=== PATIENT | female | born 1965 | race Caucasian/White ===

== ENCOUNTER 2018-05-20 05:56 | Day surgery (SDC) | payer BC ==
[2018-05-20] MEDS ORDERED: DIPRIVAN 200 MG/20 ML IV ONE (05:57)
[2018-05-20] MEDS ORDERED: Lactated Ringers 1,000 ML IV SCH (07:00)
[2018-05-20] MEDS ORDERED: Lactated Ringers 1,000 ML IV ONE (08:05)
[2018-05-20 09:08] VITALS: BP 143/73; PULSE 61; O2SAT 95
--- NOTE | 2018-05-20 10:54 | OP ---
SURGERY DATE: 05/20/18 SURGERY TIME: 727 PREOPERATIVE DIAGNOSIS: 1. SCREENING EXAM. POSTOPERATIVE DIAGNOSIS: 1. MULTIPLE POLYPS. PROCEDURE: 1. Colonoscopy with biopsy. SURGEON: Dr. Mario. ANESTHESIA: MAC. Medications given by the Anesthesia Department. BRIEF HISTORY: The patient is a 52 y/o WF presenting now for screening colonoscopy. The patient was appraised of the risks of the procedure including the risk of perforation, phlebitis, untoward reaction to medication, bleeding, and missed lesions. The patient verbalized her understanding and desired to have the procedure performed. DESCRIPTION OF PROCEDURE: The patient was given the medications by the Anesthesia Department. She had continuous pulse oximetry, ECG monitoring, intermittent BP monitoring, and end tidal CO2 monitoring during the examination. She was placed in the left lateral decubitus position. A digital rectal examination was performed and revealed normal anal sphincter tone and no masses. The flexible Olympus pediatric colonoscope was used to intubate the rectum. A view of the colon was developed sequentially to the cecum. Upon insertion and withdrawal, were noted polyps in several areas of the colon. There was a flat, sessile-appearing polyp in the ascending colon which was biopsied to rule out any adenomatous change. There was also a smaller one in the hepatic flexure. There was noted one in the descending colon also fairly flat and wide-based. This was biopsied also to rule out adenomatous change and polyps in the rectosigmoid area which were more heaped up and more characteristic for the possibility of adenomatous change. These were also biopsied with cold biopsy technique. The scope was removed from the patient who tolerated the procedure well and was sent back to OP recovery in good condition. The prep was noted to be fair to good.
== END 2018-05-20 09:00 | disposition home or self-care (01) ==
LOC: SDC 05:56
PROVIDERS: ATTEND Family Medicine
DX: K63.5 Polyp of colon (principal); K62.1 Rectal polyp
CPT/HCPCS: J2704

== ENCOUNTER 2022-05-06 10:26 | Emergency (ER) | payer OTHER ==
--- NOTE | 2022-05-06 11:04 | XRAY ---
Indication: Chest pain. Comparison: None Portable chest demonstrates normal heart and lungs. Bony thorax intact with mild degenerative changes.
[2022-05-06 11:08] LABS: Absolute Neutrophil Ct (ANC) 4.85 x10^3/uL (1.4-6.9); Basophil (Absolute #) 0.04 x10^3/uL (0-0.4); Eosinophil % 1.3 % (0.00-5.0); Hematocrit 42.2 % (35-47); Hemoglobin 13.4 g/dL (12.0-16.0); Lymphocyte (Absolute #) 2.37 x10^3/uL (1.0-4.6); Lymphocytes % 30.2 % (24.0-44.0); Mean Cell Volume 87.2 fL (78-100); Mean Corpuscular Hemoglobin 27.7 pg (26-32); Mean Corpuscular Hgb Concent. 31.8 g/dL (32-36); Mean Platelet Volume 10.9 fL (7.5-11.0); Monocyte (Absolute #) 0.48 x10^3/uL (0.0-1.3); Monocytes % 6.1 % (0.0-12.0); Neutrophil % 61.6 % (36.0-66.0); Platelet Count 249 x10^3/uL (150-450); Red Blood Count 4.84 x10^6/uL (4.1-5.4); Red Cell Distribution Width 15.9 % (11.5-14.0); White Blood Count 7.9 x10^3/uL (4.0-10.5)
[2022-05-06 11:26] LABS: D-DIMER QUANTITATIVE 0.25 mg/L (0.0-0.50); INR 0.93 (0.8-3.0); PROTIME 9.9 SECONDS (9.4-12.5); PTT 25.4 SECONDS (25.1-36.5)
[2022-05-06 11:34] LABS: ALBUMIN 4.4 g/dL (3.5-5.0); ALKALINE PHOSPHATASE 55 U/L (38-126); AMYLASE 78 U/L (30-110); BLOOD UREA NITROGEN 14 mg/dL (7-17); CHLORIDE 100 mmol/L (98-107); Calcium 8.9 mg/dL (8.4-10.2); Carbon Dioxide 31 mmol/L (22-30); Creatinine 1 0.66 mg/dL (0.52-1.04); EST GLOMERULAR FILTRATION RATE > 60.0 ML/MIN; Glucose 95 mg/dL (74-106); LIPASE 110 U/L (23-300); MAGNESIUM 1.9 mg/dL (1.6-2.3); NT PRO BNP 42.5 pg/mL (0-900); Potassium 4.2 mmol/L (3.5-5.1); SGOT/AST 32 U/L (14-36); SGPT/ALT 24 U/L (0-35); SODIUM 136 mmol/L (137-145)
[2022-05-06 11:57] LABS: INFLUENZA A NEGATIVE (NEGATIVE); INFLUENZA B NEGATIVE (NEGATIVE); RESPIRATORY SYNCTIAL VIRUS NEGATIVE (Negative); SARS-CoV-2 Xpert Express NEGATIVE (NEGATIVE)
--- NOTE | 2022-05-06 12:51 | ERPHSYRPT ---
- History of Present Illness Time Seen by Provider: 05/06/22 10:40 Historian: family Exam Limitations: no limitations Patient Subjective Stated Complaint: Pt reports "I started experiencing burning and discomfort across my chest and down underneath my left breast. Nothing makes it better or worse." Triage Nursing Assessment: Pt ambulated to cot with steady upright gait in no apparent respiratory distress. Alert and oriented x3. Complains of burning, throbbing, aching across chest into underneath left breast for four days. She has been taking tylenol and advil with no relief. Also reports feeling a flutter in her chest after sitting down to dinner that lasted approx 20 seconds. Physician History: Patient is a 56-year-old white female presents with a complaint plaint of discomfort in the chest for 4 days she has had some fluttering sensation lasting approximately 20 seconds on 2 occasions she says she is under a great deal of stress. She describes it as burning shooting pains. It is not associated with exertion and occurs with exertion or at rest. Timing/Duration: day(s) (4) Activities at Onset: none Quality: burning, fullness Location: substernal Chest Pain Radiation: no radiation Severity of Pain-Max: moderate Severity of Pain-Current: none Modifying Factors: Improves With: nothing Associated Symptoms: denies symptoms Prior Chest Pain/Cardiac Workup: no prior cardiac workup Nitro Today/Relief: no nitro taken today Aspirin Treatment Today: no aspirin today Allergies/Adverse Reactions: latex Allergy (Verified 05/06/22 10:27) morphine Allergy (Verified 05/06/22 10:27) Penicillins Allergy (Verified 05/06/22 10:27) Home Medications: Multivitamin [Multivitamins] 4 each PO DAILY 03/17/16 [History] Omeprazole 20 MG [Prilosec 20 mg] 20 mg PO DAILY 03/17/16 [History] Hx Tetanus, Diphtheria Vaccination/Date Given: No Hx Influenza Vaccination/Date Given: Yes Hx Pneumococcal Vaccination/Date Given: No Immunizations Up to Date: No Travel Risk - International Travel Have you traveled outside of the country in past 3 weeks: No - Coronavirus Screening Are you exhibiting any of the following symptoms?: No Close contact with a COVID-19 positive Pt in past 14-21 Days: No - Vaccine Status Have you recieved a Covid-19 vaccination: Yes Assistant Professor Of Nursing: Moderna - Vaccination Dates Date of 2cond Vaccination (if applicable): unknown - Review of Systems Constitutional: No Fever, No Chills Eyes: No Symptoms Ears, Nose, & Throat: No Symptoms Respiratory: No Cough, No Dyspnea Cardiac: Chest Pain, No Edema, No Syncope Abdominal/Gastrointestinal: No Abdominal Pain, No Nausea, No Vomiting, No Diarrhea Genitourinary Symptoms: No Dysuria Musculoskeletal: No Back Pain, No Neck Pain Skin: No Rash Neurological: No Dizziness, No Focal Weakness, No Sensory Changes Psychological: No Symptoms Endocrine: No Symptoms All Other Systems: Reviewed and Negative - Past Medical History Pertinent Past Medical History: Yes Neurological History: No Pertinent History ENT History: No Pertinent History Cardiac History: No Pertinent History Respiratory History: No Pertinent History Endocrine Medical History: No Pertinent History Musculoskeletal History: Arthritis, Degenerative Disk Disease GI Medical History: Ulcer History: No Pertinent History Psycho-Social History: Depression Female Reproductive Disorders: No Pertinent History - Past Surgical History Past Surgical History: Yes Neuro Surgical History: No Pertinent History Cardiac: No Pertinent History Respiratory: No Pertinent History Gastrointestinal: Cholecystectomy, Exploratory Laparoscopy Genitourinary: No Pertinent History Musculoskeletal: Other Female Surgical History: Section Other Surgical History: Steriod injection in back. Gastric bypass. 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 sleep apnea dx is 2013- pt does not use a CPAP machine - Social History Smoking Status: Former smoker Exposure to second hand smoke: No Drug Use: none Patient Lives Alone: No - Nursing Vital Signs Nursing Vital Signs: Initial Vital Signs Temperature 98.2 F 05/06/22 10:29 Pulse Rate 82 05/06/22 10:29 Respiratory Rate 15 05/06/22 10:29 Blood Pressure 133/82 05/06/22 10:29 O2 Sat by Pulse Oximetry 95 05/06/22 10:29 Pain Scale Pain Intensity 4 - Physical Exam General Appearance: no apparent distress, alert Eye Exam: PERRL/EOMI, eyes nml inspection Ears, Nose, Throat Exam: normal ENT inspection, moist mucous membranes Neck Exam: normal inspection, non-tender, supple, full range of motion Respiratory Exam: normal breath sounds, lungs clear, No respiratory distress Cardiovascular Exam: regular rate/rhythm, normal heart sounds Gastrointestinal/Abdomen Exam: soft, No tenderness, No mass Back Exam: normal inspection, No CVA tenderness, No vertebral tenderness Extremity Exam: normal inspection, normal range of motion Neurologic Exam: alert, oriented x 3, cooperative, normal mood/affect, sensation nml, No motor deficits Skin Exam: normal color, warm, dry SpO2: 94 - Course Nursing assessment & vital signs reviewed: Yes EKG Interpreted by Me: RATE (78), Sinus Rhythm, Left [place] Deviation, NORMAL INTERVALS, NORMAL QRS, Non-specific ST Changes - Radiology Exams Chest X-ray Interpretation: Reviewed by me, Negative Ordered Tests: Active Orders 24 hr Category Date Time Status EKG-ER Only STAT Care 05/06/22 10:38 Active CHEST 1 VIEW (PORTABLE) Stat Exams 05/06/22 10:37 Completed AMYLASE Stat Lab 05/06/22 11:00 Completed CBC W DIFF Stat Lab 05/06/22 10:36 Completed CMP Stat Lab 05/06/22 11:00 Completed D-DIMER QUANTITATIVE Stat Lab 05/06/22 11:00 Completed LIPASE Stat Lab 05/06/22 11:00 Completed Lactic Acid Stat Lab 05/06/22 10:42 Completed MAGNESIUM Stat Lab 05/06/22 11:00 Completed NT PRO BNP Stat Lab 05/06/22 11:00 Completed PROTIME WITH INR Stat Lab 05/06/22 11:00 Completed PTT Stat Lab 05/06/22 11:00 Completed TROPONIN Q4H Lab 05/06/22 11:00 Completed TROPONIN Q4H Lab 05/06/22 14:45 Ordered TROPONIN Q4H Lab 05/06/22 18:45 Ordered UA W/RFX CULTURE Stat Lab 05/06/22 Ordered Lab/Rad Data: Laboratory Result Diagrams 05/06/22 10:36 05/06/22 11:00 Laboratory Results 05/06/22 05/06/22 05/06/22 Range/Units 11:10 11:00 11:00 WBC (4.0-10.5) x10^3/uL RBC (4.1-5.4) x10^6/uL Hgb (12.0-16.0) g/dL Hct (35-47) % MCV (78-100) fL MCH (26-32) pg MCHC (32-36) g/dL RDW (11.5-14.0) % Plt Count (150-450) x10^3/uL MPV (7.5-11.0) fL Gran % (36.0-66.0) % Immature Gran % (Auto) (0.00-0.4) % Nucleat RBC Rel Count (0.00-0.1) % Eos # (Auto) (0-0.5) x10^3/uL Immature Gran # (Auto) (0.00-0.03) x10^3u/L Absolute Lymphs (auto) (1.0-4.6) x10^3/uL Absolute Monos (auto) (0.0-1.3) x10^3/uL Absolute Nucleated RBC (0.00-0.01) x10^3u/L Lymphocytes % (24.0-44.0) % Monocytes % (0.0-12.0) % Eosinophils % (0.00-5.0) % Basophils % (0.0-0.4) % Absolute Granulocytes (1.4-6.9) x10^3/uL Basophils # (0-0.4) x10^3/uL PT 9.9 (9.4-12.5) SECONDS INR 0.93 (0.8-3.0) APTT 25.4 (25.1-36.5) SECONDS D-Dimer 0.25 (0.0-0.50) mg/L Sodium (137-145) mmol/L Potassium (3.5-5.1) mmol/L Chloride (98-107) mmol/L Carbon Dioxide (22-30) mmol/L Anion Gap (5-15) MEQ/L BUN (7-17) mg/dL Creatinine (0.52-1.04) mg/dL Estimated GFR ML/MIN Glucose (74-106) mg/dL Lactic Acid (0.4-2.0) Calcium (8.4-10.2) mg/dL Magnesium (1.6-2.3) mg/dL Total Bilirubin (0.2-1.3) mg/dL AST (14-36) U/L ALT (0-35) U/L Alkaline Phosphatase (38-126) U/L Troponin I < 0.012 (0.000-0.034) ng/mL NT-Pro-B Natriuret Pep (0-900) pg/mL Serum Total Protein (6.3-8.2) g/dL Albumin (3.5-5.0) g/dL Amylase (30-110) U/L Lipase (23-300) U/L Influenza Type A Ag NEGATIVE (NEGATIVE) Influenza Type B Ag NEGATIVE (NEGATIVE) RSV (PCR) NEGATIVE (Negative) SARS-CoV-2 (PCR) NEGATIVE (NEGATIVE) 05/06/22 05/06/22 05/06/22 Range/Units 11:00 10:42 10:36 WBC 7.9 (4.0-10.5) x10^3/uL RBC 4.84 (4.1-5.4) x10^6/uL Hgb 13.4 (12.0-16.0) g/dL Hct 42.2 (35-47) % MCV 87.2 (78-100) fL MCH 27.7 (26-32) pg MCHC 31.8 L (32-36) g/dL RDW 15.9 H (11.5-14.0) % Plt Count 249 (150-450) x10^3/uL MPV 10.9 (7.5-11.0) fL Gran % 61.6 (36.0-66.0) % Immature Gran % (Auto) 0.3 (0.00-0.4) % Nucleat RBC Rel Count 0.0 (0.00-0.1) % Eos # (Auto) 0.10 (0-0.5) x10^3/uL Immature Gran # (Auto) 0.02 (0.00-0.03) x10^3u/L Absolute Lymphs (auto) 2.37 (1.0-4.6) x10^3/uL Absolute Monos (auto) 0.48 (0.0-1.3) x10^3/uL Absolute Nucleated RBC 0.00 (0.00-0.01) x10^3u/L Lymphocytes % 30.2 (24.0-44.0) % Monocytes % 6.1 (0.0-12.0) % Eosinophils % 1.3 (0.00-5.0) % Basophils % 0.5 (0.0-0.4) % Absolute Granulocytes 4.85 (1.4-6.9) x10^3/uL Basophils # 0.04 (0-0.4) x10^3/uL PT (9.4-12.5) SECONDS INR (0.8-3.0) APTT (25.1-36.5) SECONDS D-Dimer (0.0-0.50) mg/L Sodium 136 L (137-145) mmol/L Potassium 4.2 (3.5-5.1) mmol/L Chloride 100 (98-107) mmol/L Carbon Dioxide 31 H (22-30) mmol/L Anion Gap 9.0 (5-15) MEQ/L BUN 14 (7-17) mg/dL Creatinine 0.66 (0.52-1.04) mg/dL Estimated GFR > 60.0 ML/MIN Glucose 95 (74-106) mg/dL Lactic Acid 0.6 (0.4-2.0) Calcium 8.9 (8.4-10.2) mg/dL Magnesium 1.9 (1.6-2.3) mg/dL Total Bilirubin 0.50 (0.2-1.3) mg/dL AST 32 (14-36) U/L ALT 24 (0-35) U/L Alkaline Phosphatase 55 (38-126) U/L Troponin I (0.000-0.034) ng/mL NT-Pro-B Natriuret Pep 42.5 (0-900) pg/mL Serum Total Protein 7.0 (6.3-8.2) g/dL Albumin 4.4 (3.5-5.0) g/dL Amylase 78 (30-110) U/L Lipase 110 (23-300) U/L Influenza Type A Ag (NEGATIVE) Influenza Type B Ag (NEGATIVE) RSV (PCR) (Negative) SARS-CoV-2 (PCR) (NEGATIVE) - Progress Progress: improved Air Movement: good Blood Culture(s) Obtained: No Antibiotics given: No - Departure Departure Disposition: Home Clinical Impression: Palpitations Condition: Stable Critical Care Time: No Referrals: ELENO HINOJOSA [Primary Care Provider] - Follow up/PCP as directed Instructions: Palpitations (DC)
[2022-05-06 13:13] VITALS: BP 121/78; PULSE 78; O2SAT 98
== END 2022-05-06 13:14 | disposition home or self-care (01) ==
LOC: ED 10:26
DX: R00.2 Palpitations (principal); R07.9 Chest pain, unspecified
CPT/HCPCS: 0241U; 36415; 71045; 80053; 82150; 83605; 83690; 83735; 83880; 84484; 85025; 85379; 85610; 85730; 93005; 99283